=== PATIENT | female | born 1995 | race Caucasian/White ===

== ENCOUNTER → 2016-06-13 | Outpatient (CLI) | payer BC ==
[~2016-06-13] MED LIST: LABE100T2 PO; NIFE30TA8 PO; OXYC1TAB63 PO
== END ==
LOC: HPND 12:56
PROVIDERS: ATTEND Obstetrics & Gynecology
DX: O99.340 Other mental disorders complicating pregnancy, unspecified trimester (principal); Z34.90 Encounter for supervision of normal pregnancy, unspecified, unspecified trimester
CPT/HCPCS: 76811

== ENCOUNTER → 2016-06-19 | Outpatient (CLI) | payer BC | LOC: HPND 09:13 | PROVIDERS: ATTEND Obstetrics & Gynecology | DX: O35.1XX0 Maternal care for (suspected) chromosomal abnormality in fetus, not applicable or unspecified (principal) | CPT/HCPCS: 76815; 76825; 76827; 93325 ==

== ENCOUNTER → 2016-07-03 | Outpatient (CLI) | payer BC | LOC: HPND 08:42 | PROVIDERS: ATTEND Obstetrics & Gynecology | DX: O35.1XX0 Maternal care for (suspected) chromosomal abnormality in fetus, not applicable or unspecified (principal) | CPT/HCPCS: 76816 ==

== ENCOUNTER → 2016-07-17 | Outpatient (CLI) | payer BC | LOC: HPND 08:26 | PROVIDERS: ATTEND Obstetrics & Gynecology | DX: O35.8XX0 Maternal care for other (suspected) fetal abnormality and damage, not applicable or unspecified (principal); O99.323 Drug use complicating pregnancy, third trimester; Z3A.30 30 weeks gestation of pregnancy | CPT/HCPCS: 76815 ==

== ENCOUNTER 2016-08-24 08:56 | Inpatient (IN) | payer BC ==
[2016-08-24] VITALS (101 sets, daily range): BP systolic 121–199; BP diastolic 75–176; PULSE 18–123; RESP 9–24; TEMP 93.4–98.2; O2SAT 95–100
[2016-08-24] MEDS ORDERED: NIFEdipine 10 MG CAP ONE (11:33)
[2016-08-24] MEDS ORDERED: MAGNESIUM SULFATE 4 GM PREMIX 100 ML ONE (11:39)
[2016-08-24] MEDS ORDERED: MAGNESIUM SULFATE 40 GM PREMIX 1,000 ML ONE (11:40)
[2016-08-24] MEDS ORDERED: ONDANSETRON HCL 4 MG/2 ML VIAL ONE ×2 (11:58→13:07)
[2016-08-24] MEDS ORDERED: LABETALOL HCL 100 MG/20 ML VIAL ONE (11:58)
[2016-08-24 12:01] LABS: AUTOMATED NEUTROPHIL # 11.7 TH/MM3 (1.8-7.7); BASOPHIL # 0.1 TH/MM3 (0-0.2); BASOPHIL % 0.5 % (0.0-2.0); EOSINOPHIL # 0.1 TH/MM3 (0-0.4); EOSINOPHIL % 0.4 % (0.0-4.0); HEMATOCRIT 39.1 % (35.0-46.0); HEMO FLAGS DIFF FINAL; LYMPH % 17.9 % (9.0-44.0); LYMPHOCYTE # 2.8 TH/MM3 (1.0-4.8); MEAN CELL VOLUME 84.5 FL (80.0-100.0); MEAN CORPUSCULAR HEMOGLOBIN 27.1 PG (27.0-34.0); NEUT % 75.2 % (16.0-70.0); PLATELET COUNT 214 TH/MM3 (150-450); RED BLOOD COUNT 4.63 MIL/MM3 (4.00-5.30); WHITE BLOOD COUNT 15.5 TH/MM3 (4.0-11.0)
[2016-08-24 12:12] LABS: BACTERIA, URINE FEW /hpf; BLOOD, URINE SMALL (NEG); COMMENT (UR) CULTURE INDICATED; CULTURE IF INDICATED CULTURE INDICATED; GLUCOSE,URINE NEG (NEG); HYALINE CAST, URINE 30 /lpf (RARE); KETONE, URINE NEG (NEG); MUCUS URINE FEW /lpf (OCC); NITRITE,URINE NEG (NEG); PH, URINE 6.5 (5.0-8.5); SQUAMOUS EPITHELIAL CELL URINE 13 /hpf (0-5); URINE COLOR YELLOW (YELLW/STRAW)
[2016-08-24 12:31] LABS: INDIRECT BILIRUBIN 0.1 MG/DL (0.0-0.8); TOTAL BILIRUBIN ADULT 0.2 MG/DL (0.2-1.0); URIC ACID 6.6 MG/DL (2.6-6.0)
[2016-08-24] MEDS ORDERED: ceFAZolin INJ 1,000 MG VIAL ONE (12:31)
[2016-08-24] MEDS ORDERED: CITRIC ACID-SODIUM CITRATE LIQ 30 ML UDC ONE (12:31)
[2016-08-24] MEDS ORDERED: OXYTOCIN 10 UNIT/ML AMP ONE (12:32)
--- NOTE | 2016-08-24 12:48 | MH ---
cc: RIC BONDS DATE OF ADMISSION: 08/24/2016 ADMITTING DIAGNOSIS: 1. at 35-36 weeks. 2. Severe preeclampsia. HISTORY OF PRESENT ILLNESS: The patient is a 21 year-old single white female, Para 0 with an estimated date of confinement of 09/24/2016 by early ultrasound. She has had some increasing peripheral edema, lower extremity, over the last three weeks. She has been closely followed by obstetrics diagnostic in regards to a pericardial effusion which has resolved. Ultrasound today showed a vertex presentation, estimated weight 4 lbs, 3 ounces, of note they saw maternal ascites and blood pressure was 180/130, she was sent to the center for admission and evaluation and delivery. PAST MEDICAL HISTORY: Previous surgery in 2009, she had a laparoscopy with appendectomy and dilation and curettage. PAST MEDICAL HISTORY: Vitamins Zoloft 150 mg p.o. qd for anxiety and depression. ALLERGIES NONE. TRANSFUSIONS: None. 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 Alcohol, tobacco and drugs are none at this time. FAMILY HISTORY: Noncontributory. PHYSICAL EXAMINATION: The patient is a gravid white female with 2+ edema to the knees. HEAD, EYES, EARS, NOSE, AND THROAT: Normal. CHEST: Clear. HEART: Regular rate. ABDOMEN: Gravid, nontender. Estimated weight of about 2000 grams. Cervix is long, thin and closed. EXTREMITIES: 2+ edema to the knees and 3+ reflexes. NEUROLOGIC: Of note she has had intermittent headache for two weeks. Intermittent right upper quadrant pain over the last few days and some back pain. PLAN: She is now admitted, for evaluation, antihypertensive therapy, magnesium sulfate, being delivered by section, given her severe condition. The patient and family agreed to proceed. MD LIV Damon/jaciel /12:12 PM /12:15 PM [facility]
[2016-08-24] MEDS: LACTATED RINGER'S 1000 ML INJ 1,000 ML IV SCH ×2 (13:04→23:04)
[2016-08-24] MEDS ORDERED: ACETAMINOPHEN 1000 MG/100 ML VIAL IV ONE (13:07)
[2016-08-24] MEDS ORDERED: MORPHINE SULFATE PF 5 MG/10 ML VIAL ONE (13:07)
[2016-08-24] MEDS ORDERED: MAGNESIUM SULFATE 40 GM PREMIX 1,000 ML IV SCH (13:22)
[2016-08-24] MEDS ORDERED: ZOLPIDEM TARTRATE 5 MG TAB PO PRN (13:30)
[2016-08-24] MEDS ORDERED: MEASLES, MUMPS, RUBELLA VACCINE 0.5 ML VIAL SQ ONE (13:30)
[2016-08-24] MEDS ORDERED: CALCIUM GLUCONATE 10% 1 GM/10 ML VIAL IV PUSH PRN (13:30)
[2016-08-24] MEDS ORDERED: ONDANSETRON HCL 4 MG/2 ML VIAL IVP PRN (13:30)
[2016-08-24] MEDS ORDERED: SODIUM CHLORIDE 0.9% FLUSH 10 ML FLUSH IV FLUSH PRN (13:30)
[2016-08-24] MEDS ORDERED: LACTATED RINGER'S 1000 ML INJ 1,000 ML IV SCH (13:30)
[2016-08-24] MEDS ORDERED: SODIUM CHLORIDE 0.9% FLUSH 5 ML FLUSH IV PRN (13:30)
[2016-08-24] MEDS ORDERED: ACETAMINOPHEN 1000 MG/100 ML VIAL IV SCH (13:30)
[2016-08-24] MEDS ORDERED: KETOROLAC TROMETHAMINE 60 MG/2 ML (IM) VIAL IM PRN (13:30)
[2016-08-24] MEDS ORDERED: OXYTOCIN 30 UNITS-500ML PREMIX 500 ML IV ONE (13:30)
[2016-08-24] MEDS ORDERED: KETOROLAC TROMETHAMINE 30 MG/ML (IVP) VIAL IV PUSH PRN (13:30)
[2016-08-24] MEDS ORDERED: NIFEdipine 10 MG CAP PO PRN ×3 (13:30→14:15)
[2016-08-24] MEDS ORDERED: LABETALOL HCL 100 MG/20 ML VIAL IV PUSH PRN (14:30)
[2016-08-24] MEDS ORDERED: METOCLOPRAMIDE HCL 10 MG/2 ML VIAL ONE (17:37)
[2016-08-24] MEDS ORDERED: METOCLOPRAMIDE HCL 10 MG/2 ML VIAL IV PRN (18:15)
[2016-08-24] MEDS ORDERED: OXYTOCIN 30 UNITS-500ML PREMIX 500 ML IV PRN (18:15)
[2016-08-24] MEDS ORDERED: SODIUM CHLORIDE 0.9% FLUSH 10 ML FLUSH IV FLUSH SCH (21:00)
[2016-08-24] MEDS ORDERED: SODIUM CHLORIDE 0.9% FLUSH 5 ML FLUSH IV SCH (21:00)
[2016-08-24] MEDS ORDERED: SERTRALINE HCL 100 MG TAB PO SCH (21:15)
[2016-08-24] MEDS: SERTRALINE HCL 100 MG TAB PO SCH (22:00)
[2016-08-25] VITALS (178 sets, daily range): BP systolic 133–159; BP diastolic 73–99; PULSE 73–114; RESP 18–22; TEMP 97.9–98.4; O2SAT 92–98
[2016-08-25] MEDS: oxyCODONE/ACETAMINOPHEN 5 MG/325 MG TAB PO PRN ×2 (03:16→13:36)
[2016-08-25 06:52] LABS: BASOPHIL % 0.1 % (0.0-2.0); HEMATOCRIT 31.8 % (35.0-46.0); HEMO FLAGS DIFF FINAL; LYMPH % 8.8 % (9.0-44.0); LYMPHOCYTE # 1.9 TH/MM3 (1.0-4.8); MEAN CORPUSCULAR HEMOGLOBIN 27.5 PG (27.0-34.0); MEAN CORPUSCULAR HGB CONC 33.1 % (32.0-36.0); MONO % 4.4 % (0.0-8.0); NEUT % 86.7 % (16.0-70.0); PLATELET COUNT 213 TH/MM3 (150-450); RED BLOOD COUNT 3.83 MIL/MM3 (4.00-5.30); WHITE BLOOD COUNT 21.9 TH/MM3 (4.0-11.0)
[2016-08-25 07:28] LABS: BICARBONATE 23.6 MEQ/L (21.0-32.0); MAGNESIUM 7.2 MG/DL (1.5-2.5); POTASSIUM 5.2 MEQ/L (3.5-5.1)
[2016-08-25 07:47] LABS: CALCIUM-PROTEIN CORRECTED 8.6 MG/DL (8.5-10.1)
[2016-08-25] MEDS ORDERED: FUROSEMIDE 20 MG/2 ML VIAL IV PUSH ONE ×2 (08:45→16:00)
[2016-08-25] MEDS: LABETALOL HCL 100 MG TAB PO SCH ×2 (09:44→21:04)
[2016-08-25] MEDS: IBUPROFEN 600 MG TAB PO PRN (19:09)
[2016-08-25 20:55] LABS: AMPHETAMINE, URINE NEG (NEG); BARBITURATES, URINE NEG (NEG); COCAINE, URINE NEG (NEG)
[2016-08-25] MEDS: SERTRALINE HCL 100 MG TAB PO SCH (21:05)
[2016-08-26] VITALS (54 sets, daily range): BP systolic 117–176; BP diastolic 63–117; PULSE 87–256; RESP 16–20; TEMP 97.9–98.4
[2016-08-26] MEDS: oxyCODONE/ACETAMINOPHEN 5 MG/325 MG TAB PO PRN ×2 (04:30→20:16)
[2016-08-26 06:19] LABS: AUTOMATED NEUTROPHIL # 13.7 TH/MM3 (1.8-7.7); BASOPHIL % 0.3 % (0.0-2.0); EOSINOPHIL # 0.2 TH/MM3 (0-0.4); EOSINOPHIL % 1.1 % (0.0-4.0); HEMO FLAGS DIFF FINAL; LYMPH % 11.3 % (9.0-44.0); LYMPHOCYTE # 1.9 TH/MM3 (1.0-4.8); MEAN CELL VOLUME 84.3 FL (80.0-100.0); MEAN CORPUSCULAR HEMOGLOBIN 27.3 PG (27.0-34.0); MEAN CORPUSCULAR HGB CONC 32.4 % (32.0-36.0); MONO % 5.7 % (0.0-8.0); NEUT % 81.6 % (16.0-70.0); PLATELET COUNT 148 TH/MM3 (150-450); RED BLOOD COUNT 3.32 MIL/MM3 (4.00-5.30); RED CELL DISTRIBUTION WIDTH 15.3 % (11.6-17.2); WHITE BLOOD COUNT 16.8 TH/MM3 (4.0-11.0)
[2016-08-26 06:58] LABS: BICARBONATE 27.6 MEQ/L (21.0-32.0); POTASSIUM 4.3 MEQ/L (3.5-5.1)
[2016-08-26] MEDS: DOCUSATE SODIUM 50 MG/SENNA 8.6 MG TAB PO PRN (07:53)
[2016-08-26] MEDS: IBUPROFEN 600 MG TAB PO PRN ×3 (07:53→22:39)
[2016-08-26] MEDS: SIMETHICONE 80 MG CHEWABLE TAB PO PRN ×2 (07:53→14:24)
[2016-08-26] MEDS ORDERED: NIFEdipine 10 MG CAP ONE ×4 (08:39→21:42)
[2016-08-26] MEDS ORDERED: LABETALOL HCL 100 MG/20 ML VIAL ONE (08:40)
[2016-08-26] MEDS ORDERED: DIPHTH/TETANUS/ACEL PERTUSSIS (BOOSTER) 0.5 ML VIAL/PFS IM ONE (09:00)
[2016-08-26] MEDS: LABETALOL HCL 100 MG TAB PO SCH ×2 (09:28→20:33)
[2016-08-26] MEDS ORDERED: FUROSEMIDE 20 MG/2 ML VIAL IV PUSH ONE (09:30)
[2016-08-26 09:35] LABS: ALKALINE PHOSPHATASE 140 U/L (45-117); ALT (GPT) 13 U/L (10-53); AST (GOT) 34 U/L (15-37); INDIRECT BILIRUBIN 0.1 MG/DL (0.0-0.8); TOTAL BILIRUBIN ADULT 0.2 MG/DL (0.2-1.0)
[2016-08-26] MEDS: ALPRAZolam 0.5 MG TAB PO PRN (09:45)
[2016-08-26] MEDS: SERTRALINE HCL 100 MG TAB PO SCH (20:32)
[2016-08-26] MEDS ORDERED: NIFEdipine 10 MG CAP PO SCH (21:45)
[2016-08-26] MEDS ORDERED: NIFEdipine 20 MG CAP PO PRN ×2 (22:00)
[2016-08-27] VITALS (30 sets, daily range): BP systolic 117–164; BP diastolic 63–116; PULSE 99–117; RESP 18–20; TEMP 96.8–98.1
[2016-08-27] MEDS: ALPRAZolam 0.5 MG TAB PO PRN ×2 (00:04→18:08)
[2016-08-27] MEDS: oxyCODONE/ACETAMINOPHEN 5 MG/325 MG TAB PO PRN ×3 (04:14→21:32)
[2016-08-27] MEDS ORDERED: NIFEdipine 10 MG CAP ONE (08:22)
[2016-08-27] MEDS: LABETALOL HCL 100 MG TAB PO SCH ×2 (08:39→21:32)
--- NOTE | 2016-08-27 09:03 | MP ---
cc: RIC BONDS M.D. DATE OF SURGERY 08/24/2016 PREOPERATIVE DIAGNOSIS at 35-36 weeks with severe preeclampsia. POSTOPERATIVE DIAGNOSIS at 35-36 weeks with severe preeclampsia, delivered. PROCEDURE Primary low transverse section. ANESTHESIA Spinal. SURGEON Ric Bonds MD ESTIMATED BLOOD LOSS 500 cc. FLUIDS 1.5 liters crystalloid. OBJECTIVE FINDINGS Following the induction of adequate spinal anesthesia, the patient was prepped and draped supine on the operating table in the left all tilt position in the usual sterile fashion after the bladder being drained by Espinal catheterization. The abdomen was opened through a Pfannenstiel incision using a knife to cutdown skin from the skin to the fascia. The fascia ws opened transversely, stripped from the muscles, the rectus muscle split in the midline and the peritoneum opened sharply without incident. This showed copious ascites. About 1 liter was suctioned clear. The bladder flap was taken down sharply, retracted inferiorly with a Jonna blade. The lower uterine segment was incised, transversely with a knife and extended section with blunt dissection revealing clear fluid. The baby was gently delivered, a viable, vigorous female, Apgars 5 and 8, weight 4 pounds, 7 ounces. The cord was milked toward the baby, clamped and cut, the baby passed to the awaiting team. Cord blood was sent for typing. The placenta was removed and the uterine cavity cleaned with laps. The uterus was exteriorized and closed in two layers of running suture, first a running locking stitch of Vicryl, the second a running imbricating stitch of Vicryl. Posterior inspection of the uterus, tubes and ovaries was normal. The uterus was replaced in the pelvic cavity, irrigation performed. No bleeding was evident so the bladder flap was closed with a running stitch of 3-0 Vicryl. All laps and retractors were removed, counts were correct. The anterior peritoneum was closed with a running stitch of 2-0 Vicryl, the fascia was closed with a running locking stitch of 0 Vicryl from corner to midline and tied, the subcu was closed with a running 3-0 Vicryl and the skin with a running subcuticular 3-0 Monocryl. Dermabond applied. All counts were correct and the patient was awakened and taken to the recovery room in good condition. MD LIV Damon/KP /8:39 AM /8:54 AM
--- NOTE | 2016-08-27 09:12 | PD.CONS ---
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 Woods is a very pleasant 21-year-old female with a history of endometriosis who was admitted to the hospital on 08/24/2016 due to maternal ascites and blood pressure 180/130. Weeks ago patient noticed peripheral edema , headache, nosebleed. Patient underwent low transverse section on 03/2017. Due to difficulty with her blood pressure, hospitalist service was consulted today on an urgent basis. At the time of this interview, patient is currently doing well. She denies any chest pain, cough, shortness of breath, fever or chills. She denies any dysuria. Review of Systems Except as stated in HPI: all other systems reviewed are Neg Past Family Social History Allergies: Coded Allergies: No Known Allergies (Verified , 04/02/16) Past Medical History Endometriosis Past Surgical History Appendectomy, D&C Reported Medications Current Medications Nifedipine 10 mg 10 mg STK-MED ONCE .ROUTE Last administered on 08/24/16t 11:35 ; Start 08/24/16 at 11:33; Stop 08/24/16 at 11:34; Status DC Magnesium Sulfate 100 ml @ As Directed STK-MED ONCE .ROUTE ; Start 08/24/16 at 11:39; Stop 08/24/16 at 11:40; Status DC Magnesium Sulfate (Magnesium Sulfate 40 Gm Premix) 1,000 ml @ As Directed STK- MED ONCE .ROUTE ; Start 08/24/16 at 11:40; Stop 08/24/16 at 11:41; Status DC Labetalol HCl (Trandate Inj) 100 mg STK-MED ONCE .ROUTE ; Start 08/24/16 at 11: 58; Stop 08/24/16 at 11:59; Status DC Ondansetron HCl (Zofran Inj) 4 mg STK-MED ONCE .ROUTE ; Start 08/24/16 at 11:58 ; Stop 08/24/16 at 11:59; Status DC Cefazolin Sodium (Ancef Inj) 2,000 mg STK-MED ONCE .ROUTE ; Start 08/24/16 at 12 :31; Stop 08/24/16 at 12:32; Status DC Citric Acid/ Sodium Citrate (Bicitra Liq) 30 ml STK-MED ONCE .ROUTE Last administered on 08/24/16t 12:31; Start 08/24/16 at 12:31; Stop 08/24/16 at 12:32 ; Status DC Oxytocin (Pitocin Inj) 40 units STK-MED ONCE .ROUTE ; Start 08/24/16 at 12:32; Stop 08/24/16 at 12:33; Status DC Morphine Sulfate (Duramorph Pf 0.5 Mg/ml Inj) 5 mg STK-MED ONCE .ROUTE ; Start 08/24/16 at 13:07; Stop 08/24/16 at 13:08; Status DC Ondansetron HCl (Zofran Inj) 4 mg STK-MED ONCE .ROUTE ; Start 08/24/16 at 13:07 ; Stop 08/24/16 at 13:08; Status DC Acetaminophen 1000 mg 1,000 mg STK-MED ONCE IV ; Start 08/24/16 at 13:07; Stop 08/24/16 at 13:08; Status DC Lactated Ringer's 1,000 ml @ 100 mls/hr Q10H IV ; Start 08/24/16 at 13:04; Stop 08/25/16 at 09:03; Status DC Oxytocin 500 ml @ 100 mls/hr ONCE ONCE IV ; Start 08/24/16 at 13:30; Stop 03/31 at 18:29; Status DC Oxytocin (Pitocin 30 Units-NS 500 ml Premix) 500 ml @ 100 mls/hr UNSCH X1 PRN IV SEE LABEL COMMENTS; Start 08/24/16 at 18:15; Stop 08/25/16 at 13:19; Status DC IV Flush (NS Flush) 2 ml BID IV ; Start 08/24/16 at 21:00; Stop 08/25/16 at 13: 19; Status DC IV Flush (NS Flush) 2 ml UNSCH PRN IV FLUSH AFTER USING IV ACCESS; Start at 13:30; Stop 08/25/16 at 13:20; Status DC Simethicone (Mylicon Chew) 80 mg QID PRN PO FLATULENCE Last administered on t 14:24; Start 08/24/16 at 13:30 Acetaminophen (Ofirmev Inj) 1,000 mg Q8H IV ; Start 08/24/16 at 13:30; Stop at 05:31; Status DC Ibuprofen (Motrin) 600 mg Q6H PRN PO CRAMPING Last administered on 22:39; Start 08/24/16 at 13:30 Ketorolac Tromethamine (Toradol Inj) 60 mg UNSCH X1 PRN IM SEE LABEL COMMENTS; Start 08/24/16 at 13:30; Stop 08/25/16 at 13:29; Status DC Oxycodone/ Acetaminophen (Percocet 5-325 Mg) 1 tab Q4H PRN PO PAIN SCALE 1 TO 4 Last administered on 08/27/16 04:14; Start 08/24/16 at 13:30 Oxycodone/ Acetaminophen 2 tab 2 tab Q4H PRN PO PAIN SCALE 5 TO 10 Last administered on 08/25/16 03:16; Start 08/24/16 at 13:30 Cefazolin Sodium/ Sodium Chloride (Ancef Inj/NS Inj) 100 ml @ 200 mls/hr Q8H IV Last administered on 08/25/16 05:00; Start 08/24/16 at 21:00; Stop at 05:29; Status DC Senna/Docusate Sodium (Amy-Colace) 2 tab Q12H PRN PO CONSTIPATION Last administered on 08/26/16 07:53; Start 08/24/16 at 13:30 Zolpidem Tartrate (Ambien) 5 mg HS PRN PO INSOMNIA; Start 08/24/16 at 13:30 Measles/Mumps/ Rubella Vaccine Live (M-M-R Ii Inj) 0.5 ml ONCE ONCE SQ ; Start 08/24/16 at 13:30; Stop 08/24/16 at 14:57; Status DC Diphtheria/ Tetanus/Acell Pertussis (Boostrix Inj) 0.5 ml ONCE ONCE IM ; Start 08/26/16 at 09:00; Stop 08/26/16 at 09:01; Status DC Ondansetron HCl 4 mg 4 mg Q6H PRN IVP NAUSEA OR VOMITING; Start 08/24/16 at 13: 30 Lactated Ringer's (Lr 1000 ml Inj) 1,000 ml @ 75 mls/hr [id number] IV Last administered on 08/25/16 08:40; Start 08/24/16 at 13:30; Stop 08/25/16 at 13:19 ; Status DC Sodium Chloride (NS Flush) 2 ml UNSCH PRN IV FLUSH FLUSH AFTER USING IV ACCESS ; Start 08/24/16 at 13:30; Status UNV Sodium Chloride 2 ml 2 ml BID IV FLUSH ; Start 08/24/16 at 21:00; Status UNV Magnesium Sulfate (Magnesium Sulfate 40 Gm Premix) 1,000 ml @ 12.5 mls/hr Q24H IV Last administered on 08/25/16 08:37; Start 08/24/16 at 13:22; Stop at 13:18; Status DC Nifedipine (Procardia) 10 mg NOW PRN PO SEE LABEL COMMENTS; Start 08/24/16 at 13:30; Stop 08/24/16 at 14:57; Status DC Nifedipine (Procardia) 20 mg NOW PRN PO SEE LABEL COMMENTS; Start 08/24/16 at 13:45; Stop 08/24/16 at 14:58; Status DC Nifedipine (Procardia) 20 mg NOW PRN PO SEE LABEL COMMENTS; Start 08/24/16 at 14:15; Stop 08/24/16 at 14:58; Status DC Labetalol HCl (Trandate Inj) 40 mg NOW PRN IV PUSH SEE LABEL COMMENTS; Start at 14:30; Stop 08/24/16 at 15:03; Status DC Calcium Gluconate (Calcium Gluconate Inj) 1 gm UNSCH PRN IV PUSH Magnesium toxicity; Start 08/24/16 at 13:30 Ketorolac Tromethamine (Toradol Inj) 30 mg Q6H PRN IV PUSH PAIN GREATER THAN 5 Last administered on 08/25/16 08:48; Start 08/24/16 at 13:30; Stop 08/25/16 at 13:30; Status DC Metoclopramide HCl (Reglan Inj) 10 mg STK-MED ONCE .ROUTE Last administered on 08/24/16 18:01; Start 08/24/16 at 17:37; Stop 08/24/16 at 17:38; Status DC Metoclopramide HCl (Reglan Inj) 10 mg Q4H PRN IV NAUSEA OR VOMITING; Start 03/31 at 18:15 Sertraline HCl (Zoloft) 150 mg NOW PO ; Start 08/24/16 at 21:15; Stop 08/24/16 at 23:00; Status DC Sertraline HCl (Zoloft) 150 mg HS PO Last administered on 08/26/16 20:32; Start 08/25/16 at 21:00 Furosemide (Lasix Inj) 20 mg ONCE ONCE IV PUSH Last administered on 08/25/16 10:05; Start 08/25/16 at 08:45; Stop 08/25/16 at 08:46; Status DC Labetalol HCl (Trandate) 100 mg BID PO Last administered on 08/27/16 08:39; Start 08/25/16 at 09:00 Furosemide (Lasix Inj) 20 mg NOW ONCE IV PUSH Last administered on 08/25/16 16:45; Start 08/25/16 at 16:00; Stop 08/25/16 at 16:01; Status DC Nifedipine (Procardia) 10 mg STK-MED ONCE .ROUTE Last administered on 08:40; Start 08/26/16 at 08:39; Stop 08/26/16 at 08:40; Status DC Labetalol HCl (Trandate Inj) 100 mg STK-MED ONCE .ROUTE ; Start 08/26/16 at 08: 40; Stop 08/26/16 at 08:41; Status DC Furosemide (Lasix Inj) 20 mg ONCE ONCE IV PUSH ; Start 08/26/16 at 09:30; Stop 08/26/16 at 09:31; Status DC Alprazolam (Xanax) 0.5 mg Q6H PRN PO ANXIETY Last administered on 08/27/16 00: 04; Start 08/26/16 at 09:30; Stop 08/28/16 at 09:30 Nifedipine (Procardia) 10 mg STK-MED ONCE .ROUTE Last administered on 20:32; Start 08/26/16 at 20:29; Stop 08/26/16 at 20:30; Status DC Nifedipine (Procardia) 20 mg STK-MED ONCE .ROUTE Last administered on 21:04; Start 08/26/16 at 21:04; Stop 08/26/16 at 21:05; Status DC Nifedipine (Procardia) 20 mg STK-MED ONCE .ROUTE Last administered on 21:44; Start 08/26/16 at 21:42; Stop 08/26/16 at 21:43; Status DC Nifedipine (Procardia) 10 mg NOW PO ; Start 08/26/16 at 21:45; Stop 08/26/16 at 23:20; Status DC Nifedipine (Procardia) 20 mg UNSCH X1 PRN PO PRN SBP > 160 OR DBP > 100; Start 08/26/16 at 22:00; Stop 08/27/16 at 06:00; Status DC Nifedipine (Procardia) 20 mg UNSCH X1 PRN PO FOR SBP > 160 OR DBP > 100; Start 08/26/16 at 22:00; Stop 08/27/16 at 07:00; Status DC Nifedipine (Procardia) 10 mg STK-MED ONCE .ROUTE Last administered on 08:38; Start 08/27/16 at 08:22; Stop 08/27/16 at 08:23; Status DC Family History Significant gallbladder related disease in mother and grandmother. No family history of heart disease or diabetes. Social History Patient denies using tobacco, alcohol or illicit drugs. Physical Exam Vital Signs Vital Signs Date Time Temp Pulse Resp B/P Pulse Ox O2 Delivery O2 Flow Rate FiO2 08/27/16 08:40 115 147/91 08/27/16 08:35 102 158/109 08/27/16 08:33 18 08/27/16 08:30 103 157/111 08/27/16 08:29 100 161/114 08/27/16 08:20 99 158/116 08/27/16 08:11 103 160/112 08/27/16 08:00 97.8 08/27/16 07:59 20 08/27/16 07:56 117 164/110 08/27/16 05:24 109 136/82 08/27/16 04:16 107 142/96 08/27/16 02:57 99 137/92 08/27/16 01:00 104 117/63 08/27/16 00:01 105 129/68 08/27/16 00:00 18 08/27/16 00:00 98.1 18 08/26/16 22:33 115 120/63 08/26/16 22:12 115 133/78 08/26/16 21:34 104 163/102 08/26/16 21:30 18 08/26/16 21:02 91 170/110 08/26/16 20:31 97 175/112 08/26/16 20:10 98.4 18 08/26/16 20:09 94 167/102 08/26/16 18:00 16 08/26/16 17:01 101 145/97 08/26/16 16:13 97.9 20 08/26/16 16:12 96 163/100 08/26/16 16:00 101 161/107 08/26/16 15:00 93 155/96 08/26/16 14:32 99 163/104 08/26/16 14:32 18 08/26/16 14:00 101 153/106 08/26/16 13:45 104 160/111 08/26/16 13:30 97 145/92 08/26/16 13:15 91 146/90 08/26/16 13:00 99 141/86 08/26/16 12:45 96 148/98 08/26/16 12:30 97 148/103 08/26/16 12:23 20 08/26/16 12:19 98.2 08/26/16 12:15 88 142/91 08/26/16 12:00 87 137/87 08/26/16 11:45 93 08/26/16 11:45 147/97 08/26/16 11:30 117/89 08/26/16 11:30 256 08/26/16 11:15 92 138/92 08/26/16 10:45 89 130/74 08/26/16 10:30 90 138/78 08/26/16 10:15 93 138/74 08/26/16 10:10 90 140/77 08/26/16 10:00 97 133/77 08/26/16 10:00 20 08/26/16 09:45 153/85 08/26/16 09:45 101 08/26/16 09:41 128/89 08/26/16 09:41 104 14 09:35 152/85 08/26/16 09:35 103 08/26/16 09:30 107 149/86 08/26/16 09:25 94 149/82 08/26/16 09:20 97 146/82 08/26/16 09:15 98 147/85 Physical Exam GENERAL: This is a well-nourished, well-developed patient, in no apparent distress. SKIN: No rashes, ecchymoses or lesions. Warm and dry. HEAD: Atraumatic. Normocephalic. No temporal or scalp tenderness. EYES: Pupils equal round and reactive. No injection or drainage. ENT: Nose without bleeding, purulent drainage or septal hematoma. Airway patent. NECK: Trachea midline. No lymphadenopathy. Supple, nontender, no meningeal signs. CARDIOVASCULAR: Regular rhythm, tachycardic without murmurs, gallops, or rubs. No JVD. RESPIRATORY: Clear to auscultation. Breath sounds equal bilaterally. No wheezes , rales, or rhonchi. GASTROINTESTINAL: Abdomen soft, non-tender, nondistended. No guarding. MUSCULOSKELETAL: Extremities without clubbing, cyanosis, or edema. NEUROLOGICAL: Awake and alert. Cranial nerves II through XII intact. No focal neurological deficits. Normal speech. Laboratory Laboratory Tests Test 08/26/16 10:46 HIV (1&2) Antibody NEGATIVE Date/Time Procedure Status Source Growth 08/24/16 11:30 Urine Culture - Final Complete Urine Clean Catch NO GROWTH IN 48 HOURS. Result Diagram: 08/26/16 0545 08/26/16 0545 Assessment and Plan Problem List: (1) Preeclampsia ICD Code: O14.90 Status: Acute Assessment and Plan Ms. Woods is a pleasant 21-year-old female who was admitted on 2016 due to blood pressure 180/130. 3 weeks prior to this admission patient reports having peripheral edema, headache, nosebleed. Workup indicated preeclampsia. Patient underwent on 08/24/2016. Hospitalist service was consulted for blood pressure management. - Hypertension - Preeclampsia - Status post section on 08/24/2016. - Patient is currently on Labetalol 100mg BID. - Current BP is 141/83. - Will start patient on long acting nifedipine 30 mg daily. - If BP remains around 140s/80s, we will decrease Labetalol to 50mg BID and eventually wean off Labetalol. - If BP remains well controlled, patient may not need any BP medications. Primary care provider can monitor BP and consider discontinuing BP meds. - IF possible, please consider discontinuing NSAIDs (Ibuprofen, Naproxen). - Tachycardia - likely physiologic. - Hgb 12.5 on 08/24/2016 --> 9.1 on 08/26/2016. No need for transfusion at this point. - Patient may be somewhat hypovolemic. We'll administer 1 L of normal saline at 125 cc per hour. - Patient is also encouraged to drink more fluid. - Leukocytosis - possibly due to peripartum stress. - Patient reports no dysuria. We'll obtain a chest x-ray. Thank you for the consult. I will re-evaluate this patient later this afternoon. We'll continue to follow this patient with you. Full code. Ambulation. Problem Qualifiers (1) Preeclampsia: Qualified Code: O14.92 - Preeclampsia, second trimester Priya Jurado DO August 27, 2016 09:12
[2016-08-27] MEDS ORDERED: SODIUM CHLOR 0.9% 1000 ML INJ 1,000 ML IV SCH (09:45)
[2016-08-27] MEDS ORDERED: NIFEdipine 30 MG SUSTAINED RELEASE TAB PO SCH (09:45)
[2016-08-27] MEDS: DOCUSATE SODIUM 50 MG/SENNA 8.6 MG TAB PO PRN ×2 (11:07→21:33)
[2016-08-27] MEDS: SIMETHICONE 80 MG CHEWABLE TAB PO PRN ×2 (11:07→18:08)
[2016-08-27 11:12] LABS: AUTOMATED NEUTROPHIL # 16.9 TH/MM3 (1.8-7.7); BASOPHIL # 0.1 TH/MM3 (0-0.2); BASOPHIL % 0.3 % (0.0-2.0); EOSINOPHIL # 0.4 TH/MM3 (0-0.4); EOSINOPHIL % 1.8 % (0.0-4.0); HEMATOCRIT 28.7 % (35.0-46.0); HEMO FLAGS DIFF FINAL; LYMPH % 9.1 % (9.0-44.0); LYMPHOCYTE # 1.8 TH/MM3 (1.0-4.8); MEAN CELL VOLUME 84.8 FL (80.0-100.0); MEAN CORPUSCULAR HGB CONC 31.9 % (32.0-36.0); MONO % 4.5 % (0.0-8.0); NEUT % 84.3 % (16.0-70.0); PLATELET COUNT 179 TH/MM3 (150-450); RED BLOOD COUNT 3.39 MIL/MM3 (4.00-5.30); RED CELL DISTRIBUTION WIDTH 15.5 % (11.6-17.2)
--- NOTE | 2016-08-27 11:20 | RADRPT ---
EXAM DATE/TIME: 08/27/2016 10:52 [facility] COMPARISON: No previous studies available for comparison. INDICATIONS : Leukocytosis post c section. MEDICAL HISTORY : None. SURGICAL HISTORY : None. ENCOUNTER: Initial ACUITY: 1 day PAIN SCORE: 0/10 LOCATION: Bilateral chest FINDINGS: A single view of the chest demonstrates a mild infiltrate in the left lung base. This is suggestive o f atelectasis. Otherwise, the lungs are grossly clear. There are no pleural effusions or pulmonary ed roni. The heart size is within normal limits. The bony structures are grossly intact.. CONCLUSION: Mild left lower lung infiltrate suggestive of atelectasis. Otherwise, unremarkable exam. Donald Coleman MD on August 27, 2016 at 11:17 Board Certified Radiologist. This report was verified electronically.
[2016-08-27] MEDS: SERTRALINE HCL 100 MG TAB PO SCH (21:33)
[2016-08-27] MEDS: NIFEdipine 30 MG SUSTAINED RELEASE TAB PO SCH (22:36)
[2016-08-28] VITALS (12 sets, daily range): BP systolic 122–149; BP diastolic 69–98; PULSE 95–136; RESP 17–20; TEMP 98.3–98.6
[2016-08-28 05:58] LABS: AUTOMATED NEUTROPHIL # 13.6 TH/MM3 (1.8-7.7); BASOPHIL % 0.3 % (0.0-2.0); EOSINOPHIL # 0.4 TH/MM3 (0-0.4); EOSINOPHIL % 2.2 % (0.0-4.0); HEMATOCRIT 28.7 % (35.0-46.0); HEMO FLAGS DIFF FINAL; LYMPH % 12.8 % (9.0-44.0); LYMPHOCYTE # 2.2 TH/MM3 (1.0-4.8); MEAN CELL VOLUME 84.7 FL (80.0-100.0); MEAN CORPUSCULAR HEMOGLOBIN 27.4 PG (27.0-34.0); MEAN CORPUSCULAR HGB CONC 32.3 % (32.0-36.0); MONO % 4.8 % (0.0-8.0); NEUT % 79.9 % (16.0-70.0); PLATELET COUNT 179 TH/MM3 (150-450); RED BLOOD COUNT 3.39 MIL/MM3 (4.00-5.30); RED CELL DISTRIBUTION WIDTH 15.9 % (11.6-17.2); WHITE BLOOD COUNT 17.1 TH/MM3 (4.0-11.0)
[2016-08-28] MEDS: LABETALOL HCL 100 MG TAB PO SCH ×2 (09:19→20:26)
[2016-08-28] MEDS: NIFEdipine 30 MG SUSTAINED RELEASE TAB PO SCH ×2 (09:20→20:26)
[2016-08-28] MEDS: oxyCODONE/ACETAMINOPHEN 5 MG/325 MG TAB PO PRN ×2 (09:20→20:26)
--- NOTE | 2016-08-28 10:30 | HHI.PR ---
Subjective Remarks Follow up for HTN. Patient is doing well. No acute concerns. Her BP has been well controlled. Remains tachycardic. Objective Vitals Vital Signs Date Time Temp Pulse Resp B/P Pulse Ox O2 Delivery O2 Flow Rate FiO2 08/28/16 10:23 98.4 105 18 141/76 08/28/16 09:49 129 137/84 08/28/16 09:48 136 133/84 08/28/16 08:55 20 08/28/16 08:12 98.3 08/28/16 08:08 116 147/90 08/28/16 04:00 18 08/28/16 03:54 95 133/77 08/28/16 01:00 18 08/28/16 00:59 95 122/69 08/28/16 00:15 18 08/27/16 23:32 18 08/27/16 23:31 98.1 08/27/16 23:15 113 138/82 08/27/16 22:35 18 08/27/16 19:55 98.1 111 18 151/92 08/27/16 18:04 102 153/101 08/27/16 18:04 18 08/27/16 17:39 18 08/27/16 17:39 96.8 08/27/16 17:37 106 161/101 08/27/16 14:15 102 149/102 08/27/16 12:17 101 147/89 08/27/16 11:20 102 150/100 08/27/16 11:17 98.1 08/27/16 11:00 20 Result Diagram: 08/28/16 0514 08/26/16 0545 Imaging Last Impressions Chest X-Ray 08/27/16 0000 Signed Impressions: Service Date/Time: Saturday, August 27, 2016 10:52 - CONCLUSION: Mild left lower lung infiltrate suggestive of atelectasis. Otherwise, unremarkable exam. Donald Coleman MD Objective Remarks GENERAL: AOX3, NAD. SKIN: Warm and dry. HEAD: Normocephalic. EYES: No scleral icterus. No injection or drainage. NECK: Supple, trachea midline. No JVD or lymphadenopathy. CARDIOVASCULAR: Regular rate and rhythm without murmurs, gallops, or rubs. RESPIRATORY: Breath sounds equal bilaterally. No accessory muscle use. GASTROINTESTINAL: Abdomen soft, non-tender, nondistended. MUSCULOSKELETAL: No cyanosis, or edema. BACK: Nontender without obvious deformity. No CVA tenderness. Procedures A/P Problem List: (1) Preeclampsia ICD Code: O14.90 Status: Acute (2) HTN (hypertension) ICD Code: I10 Status: Acute (3) Atelectasis ICD Code: J98.11 Status: Acute Assessment and Plan Ms. Woods is a pleasant 21-year-old female who was admitted on 2016 due to blood pressure 180/130. 3 weeks prior to this admission patient reports having peripheral edema, headache, nosebleed. Workup indicated preeclampsia. Patient underwent on 08/24/2016. Hospitalist service was consulted for blood pressure management. - Hypertension - Preeclampsia - Status post section on 08/24/2016. - Patient is currently on Labetalol 100mg BID. - Current BP is 141/76. - Continue nifedipine 30 mg daily. Can be titrated up by PCP. - Continue Labetalol 100mg BID for now. Can be titrated down by PCP. - IF possible, please consider discontinuing NSAIDs (Ibuprofen, Naproxen). - Tachycardia - likely physiologic. - Hgb 12.5 on 08/24/2016 --> 9.3 on 08/28/2016. No need for transfusion at this point. - Patient is also encouraged to drink more fluid. - Leukocytosis - possibly due to peripartum stress. WBC 20.00 --> 17.1. - CXR shows atelectasis. We can give her incentive spirometer. Patient can be discharged from medical standpoint. Patient is highly encouraged to follow up with her PCP with regards to blood pressure medications. Will sign off. Please contact me if I can be of any help. ([phone]). Problem Qualifiers (1) Preeclampsia: Qualified Code: O14.92 - Preeclampsia, second trimester Priya Jurado DO August 28, 2016 10:30
[2016-08-28] MEDS: IBUPROFEN 600 MG TAB PO PRN (20:26)
[2016-08-28] MEDS: SERTRALINE HCL 100 MG TAB PO SCH (20:27)
[2016-08-28] MEDS: DOCUSATE SODIUM 50 MG/SENNA 8.6 MG TAB PO PRN (20:27)
[2016-08-29 00:12] VITALS: BP 130/81; PULSE 78; RESP 16; TEMP 97.8
[2016-08-29 04:00] VITALS: BP 135/91; PULSE 80; RESP 16; TEMP 97.9
[2016-08-29] MEDS ORDERED: OXYC1TAB63 PO (08:24)
[2016-08-29] MEDS ORDERED: LABE100T2 PO (08:24)
[2016-08-29] MEDS ORDERED: NIFE30TA8 PO (08:24)
--- NOTE | 2016-08-29 08:24 | HHI.DCPOC ---
Discharge Care Plan Report Symptoms to Your Doctor -Temperate above 100.5 degrees -Redness, of incision or excessive or foul smelling drainage -Unusual pain or calf pain -Increased vaginal bleeding -Painful or difficulty urinating -Feelings of extreme sadness or anxiety after 2 weeks Goals to Promote Your Health * To prevent worsening of your condition and complications * To maintain your health at the optimal level Directions to Meet Your Goals Take your medications as prescribed Follow your dietary instruction Follow activity as directed Ensure plenty of rest for recovery Drink fluids for hydration Keep your appointments as scheduled Take your immunizations and boosters as scheduled If your symptoms worsen call your PCP, if no PCP go to Urgent Care Center or Emergency Room Smoking is Dangerous to Your Health. Avoid second hand smoke Call the 24-hour crisis hotline for domestic abuse at Ish Duenas MD August 29, 2016 08:24
[2016-08-29] MEDS: LABETALOL HCL 100 MG TAB PO SCH (08:49)
[2016-08-29] MEDS: NIFEdipine 30 MG SUSTAINED RELEASE TAB PO SCH (08:49)
[2016-08-29] MEDS: IBUPROFEN 600 MG TAB PO PRN (08:50)
[2016-08-29 09:00] VITALS: BP 129/90; PULSE 97; RESP 16; TEMP 98
--- NOTE | 2016-08-29 12:05 | MD ---
cc: RIC BONDS M.D. ADMISSION DATE: 08/24/2016 DISCHARGE DATE: 08/29/2016 ADMISSION DIAGNOSES 1. at 35-36 weeks. 2. Severe preeclampsia. DISCHARGE DIAGNOSES 1. at 35-36 weeks. 2. Severe preeclampsia. 3. Delivered. PROCEDURE Primary low transverse section on 08/24/2016. HISTORY OF PRESENT ILLNESS A 21-year-old single white female, para 0, with an EDC of 09/24/2016 by early ultrasound. Her course was notable for anxiety depression well-controlled with Zoloft and counseling. The labs include Rh-positive, VDRL nonreactive, rubella immune, rubeola immune, HAA negative, Pap negative. Glucose screen was normal. Strep culture was negative. Her Panorama testing was normal. Mid-trimester scan showed pericardial effusion and she was carefully followed by OB Diagnostic with resolution of that effusion and normal anatomy. TORCH titers were normal. HOSPITAL COURSE On the day of admission her ultrasound showed the pericardial effusion resolved but the Mom was showing ascites and blood pressure was elevated to 180/130. She complained of headache and abdominal pain. She was rapidly moved to the OB Floor and prepared for immediate section with delivery of a viable, vigorous female. Apgars were 8 and 9, weight 4 pounds, 7 ounces. The patient received magnesium sulfate therapy prior to delivery and 24 hours post-delivery and required vigorous antihypertension medications for control and diuresis due to the nature of her extensive edema. The baby suffered pneumothorax and pulmonary hypertension and was transferred to [facility]. As the time of discharge the patient was having normal bowel and bladder function, BP was controlled, pain was controlled and the edema had resolved. DISCHARGE INSTRUCTIONS She was advised NPV, light activity, no driving and to return to see me in one week. She is to call for abnormal pain, bleeding, temperature, signs of infection or depression. She will take her Zoloft and vitamins at home. She was given a script for Percocet 5, 1-2 p.o. q.4 hours p.r.n. pain #60, labetalol 100 mg p.o. b.i.d. #60, nifedipine ER 24-hour 30 mg p.o. b.i.d. #60. Should she have any episodes of recurrent edema, headache or pain, she is to report back to the OB ED for evaluation. MD LIV Damon/KP /8:29 AM /11:49 AM
[2016-08-30 11:34] LABS: HEROIN (6-ACETYLMORPHINE) UR NEG (NEG); OBMETHADONE UR NEG (NEG); PHENCYCLIDINE URINE NEG (NEG)
[2016-08-30 11:35] LABS: BATH SALTS (MDPV) UR NEG (NEG); ECSTASY (MDMA) UR NEG (NEG); GABAPENTIN UR NEG (NEG); HYDROMORPHONE U NEG (NEG); K2 SPICE UR NEG (NEG); OXYCODONE (PERCODAN) NEG (NEG)
== END 2016-08-29 10:55 | disposition home or self-care (01) | DRG 765 ==
LOC: HPND 08:56 → OBSVTOIN 11:14 → H2EA 11:14 → H1EA 08-28 09:59
PROVIDERS: ADMIT Obstetrics & Gynecology; ATTEND Obstetrics & Gynecology
PROC: 10D00Z1 Extraction of Products of Conception, Low, Open Approach (ICD-10-PCS; principal; 2016-08-27)
DX: O14.14 Severe pre-eclampsia complicating childbirth (principal); O99.12 Other diseases of the blood and blood-forming organs and certain disorders involving the immune mechanism complicating childbirth; R18.8 Other ascites; J98.11 Atelectasis; O99.344 Other mental disorders complicating childbirth; D72.829 Elevated white blood cell count, unspecified; F41.8 Other specified anxiety disorders; R00.0 Tachycardia, unspecified; Z3A.36 36 weeks gestation of pregnancy; Z37.0 Single live birth
CPT/HCPCS: 59025; 71010; 76816; 76818; 76819; 76820; 76821; 80048; 80076; 80307; 81001; 83735; 84155; 84550; 85025; 86703; 86850; 86900; 86901; 87086; 88307; 90715; G0481; J0131; J0690; J1885; J1940; J2274; J2405; J2590; J2765; J3475; J7030; J7120